=== PATIENT | male | born 1995 | race African-American/Black ===

== ENCOUNTER 2025-10-11 19:41 | Emergency (ER) | payer MEDICAID ==
[~2025-10-11] VITALS: Ht 172.7 cm; Wt 68.0 kg
[2025-10-11 22:43] VITALS: BP 116/77; PULSE 116; RESP 16; TEMP 98.5; O2SAT 98
[2025-10-11] MEDS: ACETAMINOPHEN 500 MG TABLET PO ONE (23:18)
[2025-10-11] MEDS: IBUPROFEN 600 MG TABLET PO ONE (23:19)
== END 2025-10-12 00:39 | disposition home or self-care (01) ==
LOC: EMS 19:41
DX: S02.2XXA Fracture of nasal bones, initial encounter for closed fracture (principal); S01.21XA Laceration without foreign body of nose, initial encounter; Y08.89XA Assault by other specified means, initial encounter; Y93.89 Activity, other specified; Y92.89 Other specified places as the place of occurrence of the external cause; Y99.8 Other external cause status
CPT/HCPCS: 12011; 70160; 99283